=== PATIENT | male | born 1960 | race Caucasian/White ===

== ENCOUNTER 2024-09-06 07:19 | Emergency (ER) | payer BC, SELFPAY ==
[2024-09-06] VITALS (8 sets, daily range): BP systolic 124–193; BP diastolic 82–122; PULSE 73–92; RESP 16–18; TEMP 36.7–37.1; O2SAT 95–99; BMI 36.8
--- NOTE | 2024-09-06 07:33 | XR_ITS ---
Examination: CT abdomen and pelvis without contrast. Coronal 3-D reconstructions. Sagittal 2-D reconstructions. Date and time of exam:September 06 2024 0811 hours CTDI: vol (mGy): 13.6 DLP: (mGycm): 858 Technique: Axial images of the abdomen have been obtained, 3 mm slice thickness Intravenous contrast material has not been administered. Low dose protocols were performed. One or more of the following dose reduction techniques were used; automated exposure control, adjustment of the mA and/or KV according to patient size, use of iterative reconstruction technique. Findings: Stable pulmonary nodule right lower lobe Diffuse fatty infiltration throughout the liver No gallstones No pancreatic or adrenal mass Perinephric stranding Bilateral benign renal cysts No hydronephrosis or ureteral calculi Normal appendix 20 mm fat-containing umbilical hernia Colonic diverticulosis, no diverticulitis Normal seminal vesicles No significant prostatomegaly Minimal thickening of the urinary bladder wall Advanced degenerative disc disease L3-L4, L4-L5 IMPRESSION: Fatty liver Perinephric stranding consistent with urinary tract infection Mild cystitis pattern Normal appendix
--- NOTE | 2024-09-06 07:33 | PD.EDRME ---
Rapid Medical Screening Exam E Arrival date/time: 09/06/24 07:19 64-year-old male with a history of hypertension, hyperlipidemia presents to the emergency room with a chief complaint of fever, vomiting, and lower abdominal pain x 2 days. I have greeted and performed a focused initial assessment of this patient. A comprehensive ED assessment and evaluation of the patient, analysis of all test results, and completion of the medical decision making process will be conducted by additional ED providers. Chief Complaint: Nausea/Vomiting/Diarrhea Vital signs reviewed by provider: Yes
[2024-09-06] MEDS: ONDANSETRON ODT 4 MG TABRAP PO (07:44)
--- NOTE | 2024-09-06 08:54 | PC.NURSE ---
ASSUME CARE FOR THIS PT, WHO PRESENT TO THE ER WITH CHIEF C/O OF FEVER SINCE YESTERDAY ALONG WITH N/V. PT ALSO C/O OF FEELING WEAK. PT GIVE UPDATE ON PLAN OF CARE. FAMILY AT BEDSIDE.
[2024-09-06 09:07] LABS: Basophils % (Auto) 0 % (0-2.5); Eosinophils % (Auto) 0 % (0-10); Hematocrit 40.9 % (41.0-53.0); Hemoglobin 14.2 g/dL (13.5-16.0); Immature Granulocytes % (Auto) 1 % (0-0); Immature Granulocytes Auto 0.08 Thou/mm3 (0.00-0.00); Lymphocytes # (Auto) 1.2 Thou/mm3 (1.0-4.8); Lymphocytes % (Auto) 13 % (10-50); Mean Corpuscular HGB Conc 34.7 g/dl (31.0-37.0); Mean Corpuscular Hemoglobin 31.5 pg (25.0-35.0); Mean Corpuscular Volume 91 fL (80-100); Monocytes # (Auto) 1.3 Thou/mm3 (0.0-0.8); Monocytes % (Auto) 14 % (0-12); Neutrophils # (Auto) 6.9 Thou/mm3 (1.8-7.7); Neutrophils % (Auto) 72 % (37-80); Nucleated Red Blood Cell % 0 /100 WBC (0); Platelet Count 255 Thou/mm3 (140-440); RDW Standard Deviation 50.2 fL (35.1-43.9); Red Blood Count 4.51 Miln/mm3 (4.50-5.90); White Blood Count 9.6 Thou/mm3 (3.8-10.6)
[2024-09-06 09:23] LABS: Alanine Aminotransferase 31 U/L (10-49); Albumin, Serum 4.6 gm/dL (3.4-4.8); Albumin/Globulin Ratio 1.7 (1.2-2.2); Alkaline Phosphatase 56 U/L (46-116); Anion Gap 12 (7-16); Aspartate Amino Transferase 27 U/L (0-34); BUN/Creatinine Ratio 19 Ratio (12-20); Bilirubin,Total 0.5 mg/dL (0.3-1.2); Blood Urea Nitrogen 19 mg/dL (9-23); Calcium 9.3 mg/dL (8.3-10.6); Calcium (Corrected) 9.3 mg/dL (8.5-10.1); Carbon Dioxide 24.5 mMol/L (20.0-31.0); Chloride 98 mMol/L (98-107); Estimated Creatinine Clearance 105.5 mL/min (>60); Globulin 2.7 gm/dL (2.3-3.5); Glucose 133 mg/dL (74-106); Lipase 33 U/L (12-53); Osmolality,Calculated 272 (275-295); Potassium 3.8 mMol/L (3.4-5.1); Sodium 134 mMol/L (136-145); Total Protein 7.3 gm/dL (5.7-8.2); eGFR > 60 See Note
--- NOTE | 2024-09-06 09:29 | PD.EDNV ---
Nausea/Vomit./Diarrhea-RME/HPI General Chief complaint: Nausea/Vomiting/Diarrhea Stated complaint: Fever, vomiting, BARRERA Time Seen by Provider: 09/06/24 15:31 Arrival date/time: 09/06/24 07:19 RME / HPI RME / HPI Narrative: DR. YOUNG MAIN ED EVALUATION: 64 year old male presents to the Emergency Department with complaints of fevers, chills, nausea, vomiting, lower abdominal pain, and a mild headache. Onset of symptoms 2 days. Symptoms are moderate. PMHx: Hypertension, hyperlipidemia Social Hx: Tobacco smoker. No alcohol or substance use. Related Data Home Medications ?Medication ?Instructions ?Recorded ?Confirmed atorvastatin 10 mg tablet 10 mg PO QDAY 12/20/18 06/16/23 potassium chloride 10 mEq 10 meq PO DAILY 03/27/23 02/02/24 tablet,extended release (Klor-Con) azilsartan medoxomil 40 1 tab PO DAILY 06/16/23 02/02/24 mg-chlorthalidone 12.5 mg tablet (Edarbyclor) duloxetine 60 mg capsule,delayed 60 mg PO BID 06/16/23 02/02/24 release carvedilol 25 mg tablet 25 mg PO BID 02/02/24 02/02/24 furosemide 40 mg tablet 40 mg PO DAILY 02/02/24 02/02/24 gabapentin 300 mg capsule 300 mg PO TID 02/02/24 02/02/24 Previous Rx's ?Medication ?Instructions ?Recorded benzonatate 100 mg capsule 100 mg PO TID PRN cough #10 caps 09/06/24 Allergies Allergy/AdvReac Type Severity Reaction Status Date / Time No Known Allergies Allergy Verified 06/17/23 10:47 Review of Systems Review of Systems Systems Reviewed: All systems reviewed, normal except as documented Narrative Review of Systems: GEN: + fever, + chills, no weight loss EYES: No discharge, no visual changes, no pain HEENT: No ear pain, no congestion, no sore throat PULM: No shortness of breath, no cough, no congestion CV: No chest pain, no dyspnea on exertion, no palpitations GI: + nausea, + vomiting, no diarrhea, + lower abdominal pain, no constipation : No frequency, no urgency and no dysuria MUSC/SKEL: No joint pain, no back pain SKIN: No rash PSYCH: No hallucinations, no depression HEME/LYMPH: No easy bleeding or bruising tendencies NEURO: No weakness, + mild headache Past Medical History Past Medical History NEUROLOGIC: Negative Neurological Disorders or Seizures CARDIAC: Positive Cardiac Disorders, Hypercholesterolemia, Edema (slight edema) and Hypertension; Negative Congestive Heart Failure RESPIRATORY: Negative Chronic Obstructive Pulmonary Disease (COPD) or Asthma GASTROINTESTINAL: Positive Gastrointestinal Disorders, Hiatal Hernia and Obesity; Negative Hepatitis GENITOURINARY: Negative Genitourinary Disorders or Renal Disease MUSCULOSKELETAL: Positive Musculoskeletal Disorders and Arthritis ENDOCRINE: Negative Endocrine Disorders, Diabetes Mellitus Type 1 or Diabetes Mellitus Type 2 HEMATOLOGIC: Negative Blood Disorders or Sickle Cell Disease OTHER HISTORY: Positive Hospitalization (accident), Blood Transfusions, MRSA and Chicken Pox; Negative Autoimmune Disease, Shingles, Falls, Blood Transfusion Reaction, Anesthesia Reactions, Chemotherapy, Radiation Therapy or Cancer Family History FAMILY HISTORY: Positive Family Cardiac Disorders (MOTHER (CVA)), Family Cancer (FATHER (COLON)) and Family Surgery (FATHER); Negative Family Psychiatric Problems, Family Respiratory Disorders, Family Gastrointestinal Problems or Family Anesthesia Reaction Surgical History SURGICAL: Positive Abdominal Surgery, Arthroscopy (right knee) and Vasectomy Social History SMOKING STATUS: Current every day smoker SUBSTANCE USE: does not use ALCOHOL: Never ED Exam Narrative Physical exam: GENERAL APPEARANCE: alert and oriented x 4, well-developed, well-nourished, no acute distress VITALS: All vitals were reviewed and the pulse ox is 95% on room air, which is normal according to my interpretation. HEENT: Normocephalic, atraumatic; pupils equal, round, reactive to light; EOMI; mucous membranes pink, moist; oropharynx clear NECK: Supple LUNGS: CTABL; no wheezes, no rales, no rhonchi HEART: Regular rate, regular rhythm; normal S1, S2; no murmurs ABDOMEN: non distended; normal BS; soft, no tenderness, no guarding, no rebound; no masses, no organomegaly, no hernia BACK: no CVA tenderness EXTREMITIES: atraumatic; no edema NEUROLOGIC: awake; alert and oriented x4; cranial nerves II-XII grossly intact; no focal sensory or motor deficits PSYCHIATRIC: appropriate mood and affect SKIN: warm, dry, normal color; no rashes Course Course Course Narrative: 1200: Patient was signed out to Dr. Sierra. Past medical, surgical, social and family history reviewed. Vitals and home medications reviewed. Results and treatment plan discussed. They will assume the care of the patient at this time and will follow the patient. Quality Measures none Orders Category Date Time Status CT abdomen pelvis wo con Stat Exams 09/06/24 07:33 Completed CBC Stat Lab 09/06/24 08:22 Completed CMP [Comprehensive Metabolic Panel] Stat Lab 09/06/24 08:22 Completed Lipase Stat Lab 09/06/24 08:22 Completed UA [Urinalysis] Stat Lab 09/06/24 10:15 Completed Urine Culture Stat Lab 09/06/24 10:15 Completed Albuterol/Ipratr Rt Michelle [Duoneb Rt Michelle] Med 09/06/24 14:02 Discontinued 3 ml INH X1 ONE HYDROcodone*/APAP 5/325 [[place] 5/325] Med 09/06/24 14:40 Discontinued 1 tab PO X1 ONE Ketorolac Inj [Toradol Inj] Med 09/06/24 15:38 Discontinued 30 mg IVP X1 ONE Morphine Inj Med 09/06/24 14:02 Discontinued 4 mg IVP X1 ONE Ondansetron Inj [Zofran Inj] Med 09/06/24 14:02 Discontinued 4 mg IV X1 ONE Ondansetron Odt [Zofran Odt] Med 09/06/24 07:33 Discontinued 4 mg PO X1 ONE Oseltamivir [Tamiflu] Med 09/06/24 14:06 Discontinued 75 mg PO X1 ONE Sodium Chloride 0.9% 1000 ml [Ns] 1,000 ml Med 09/06/24 12:32 Discontinued IV 999 mls/hr Sodium Chloride 0.9% 1000 ml [Ns] 1,000 ml Med 09/06/24 12:39 Discontinued IV 999 mls/hr carVEDILOL [Coreg] Med 09/06/24 14:02 Discontinued 25 mg PO X1 ONE Vital Signs Vital signs: Vital Signs Temperature 98.6 F 09/06/24 07:38 Pulse Rate 78 09/06/24 07:38 Respiratory Rate 18 09/06/24 07:38 Blood Pressure 124/82 09/06/24 07:38 Pulse Oximetry (%) 95 09/06/24 07:38 Oxygen Delivery Method Room Air 09/06/24 07:38 Nausea/Vomiting/Diarrhea MDM Narrative MDM Narrative:: IRachel am scribing for and in the presence of Dr. Yonug. Patient data External records reviewed:: [facility] previous records (Reviewed last admission discharge dated 02/02/24, patient admitted for the following: Gastroenteritis) Clinical information provided by:: patient Social determinants that could affect healthcare access:: other (specify) (tobacco smoker ) Patient has the following chronic illnesses:: Hypertension, hyperlipidemia How is presenting disease/condition affected by chronic disease/condition?: exacerbated by Evaluation data The following diagnostics were reviewed and interpreted by me:: lab results and radiology exam(s) Lab and/or radiology exams considered but not ordered:: none Interpretation Summary: Procedure(s): CT abdomen pelvis wo con Accession Number(s): [id number] cc: Sunny Victor; Kwasi Kirby MD; Ruiz Gardner MD~ Examination: CT abdomen and pelvis without contrast. Coronal 3-D reconstructions. Sagittal 2-D reconstructions. Date and time of exam:September 06 2024 0811 hours CTDI: vol (mGy): 13.6 DLP: (mGycm): 858 Technique: Axial images of the abdomen have been obtained, 3 mm slice thickness Intravenous contrast material has not been administered. Low dose protocols were performed. One or more of the following dose reduction techniques were used; automated exposure control, adjustment of the mA and/or KV according to patient size, use of iterative reconstruction technique. Findings: Stable pulmonary nodule right lower lobe Diffuse fatty infiltration throughout the liver No gallstones No pancreatic or adrenal mass Perinephric stranding Bilateral benign renal cysts No hydronephrosis or ureteral calculi Normal appendix 20 mm fat-containing umbilical hernia Colonic diverticulosis, no diverticulitis Normal seminal vesicles No significant prostatomegaly Minimal thickening of the urinary bladder wall Advanced degenerative disc disease L3-L4, L4-L5 IMPRESSION: Fatty liver Perinephric stranding consistent with urinary tract infection Mild cystitis pattern Normal appendix Dictated By: Kwasi Kirby MD Medications / Prescriptions Medications / Prescriptions considered but not ordered:: none Medication administrations:: Medication Administration History Discontinued Medications Hydrocodone Bitart/Acetaminophen (Hydrocodone/Apap 5/325 Tablet) 1 tab PO X1 ONE Stop: 09/06/24 14:41 Last Admin: 09/06/24 15:12 Dose: Not Given Documented By: DB Non-Admin Reason: Patient Refused Comments: Albuterol/Ipratropium (Albuterol/Ipratropium (Duoneb) Rt Michelle 3 Ml Nebu) 3 ml INH X1 ONE Stop: 09/06/24 14:03 Last Admin: 09/06/24 14:39 Dose: 3 ml Documented By: KECIA Carvedilol (Carvedilol 12.5 Mg Tablet) 25 mg PO X1 ONE Stop: 09/06/24 14:03 Last Admin: 09/06/24 14:44 Dose: 25 mg Documented By: PAT Sodium Chloride (Ns) 1,000 mls @ 999 mls/hr IV .Q1H1M ONE Stop: 09/06/24 13:32 Last Infusion: 09/06/24 14:28 Dose: Infused Documented By: Admin: 09/06/24 13:25 Dose: 999 mls/hr Documented By: PAT Sodium Chloride (Ns) 1,000 mls @ 999 mls/hr IV .Q1H1M ONE Stop: 09/06/24 13:39 Last Infusion: 09/06/24 14:28 Dose: Infused Documented By: Admin: 09/06/24 13:27 Dose: 999 mls/hr Documented By: PAT Ketorolac Tromethamine (Ketorolac Inj 30 Mg/Ml Vial) 30 mg IVP X1 ONE Stop: 09/06/24 15:39 Last Admin: 09/06/24 16:27 Dose: 30 mg Documented By: PAT Morphine Sulfate (Morphine Sulf Inj 10 Mg/Ml Vial) 4 mg IVP X1 ONE Stop: 09/06/24 14:03 Last Admin: 09/06/24 14:30 Dose: 4 mg Documented By: PAT Ondansetron HCl (Ondansetron Odt 4 Mg Tabrap) 4 mg PO X1 ONE; Protocol Stop: 09/06/24 07:34 Last Admin: 09/06/24 07:44 Dose: 4 mg Documented By: CHERIE Ondansetron HCl (Ondansetron Inj 2 Mg/Ml Inj 2 Ml) 4 mg IV X1 ONE; Protocol Stop: 09/06/24 14:03 Last Admin: 09/06/24 14:29 Dose: 4 mg Documented By: PAT Oseltamivir Phosphate (Oseltamivir 75 Mg Capsule) 75 mg PO X1 ONE Stop: 09/06/24 14:07 Last Admin: 09/06/24 14:32 Dose: 75 mg Documented By: DB see above Consultations Consultation(s) initiated? (list below): No Consultation #1 (Physician, Specialty, Details): Patient signout to Dr. Sierra. Diagnosis Nausea Differential Diagnosis: food poisoning, gastroenteritis and dehydration Most likely diagnosis given after review of the tests above:: No official diagnoses at this time, still pending diagnostic tests. Patient signout to Dr. Sierra. Admission Indicated Admission indicated?: not indicated Explain why admission is indicated or not indicated:: No final disposition plan at this time, still pending diagnostic tests. Patient signout to Dr. Sierra. Admission Request Was there a request for admission?: No Disposition Plan Disposition Plan: other (specify) (Patient signout to Dr. Sierra.) Discharge Plan Plan Patient Disposition: HOME (Self Care) Patient condition on transfer: Stable Prescriptions/Referrals Prescriptions/Med Rec: New benzonatate 100 mg capsule 100 mg PO TID PRN (Reason: cough) Qty: 10 0RF No Action atorvastatin 10 mg Tablet 10 mg PO QDAY potassium chloride [Klor-Con 10] 10 mEq Tablet Extended Release 10 meq PO DAILY furosemide 40 mg tablet 40 mg PO DAILY carvedilol 25 mg tablet 25 mg PO BID gabapentin 300 mg capsule 300 mg PO TID Patient Comments: TAKE 1 CAPSULE BY MOUTH THREE TIMES A DAY duloxetine 60 mg Capsule,Delayed Release(Dr/Ec) 60 mg PO BID Edarbyclor 40-12.5 mg Tablet 1 tab PO DAILY Referrals: Ruiz Gardner MD [Primary Care Provider] - 09/10/24 Problem List Clinical Impression: Influenza Patient/Caregiver Discharge Instructions Education Materials: ED Influenza (Adult) Print Language: Khmer Stand Alone Forms: [employer] Award Info., Patient Portal Info Letter
[2024-09-06 10:19] LABS: Collection Type, Urine Clean Catch; Squamous Epithelial Cell,Urine 0 /hpf (0-5)
[2024-09-06 10:27] LABS: Bilirubin,Urine Negative (Negative); Blood,Urine Negative (Negative); Clarity,Urine Clear (Clear/Hazy); Color,Urine Yellow (Lt Yel-Yel); Glucose, Urine Negative (Negative); Hyaline Casts,Urine < 1 /hpf (0-1); Ketones,Urine Trace (Negative); Leukocyte Esterase,Urine Negative (Negative); Nitrite,Urine Negative (Negative); PH,Urine 6.5 (5.0-7.0); Protein,Urine 1+ (Neg - Trace); RBC,Urine 9 /hpf (0-3); Specific Gravity,Urine 1.026 (1.001-1.035); Urobilinogen,Urine Negative mg/dL (0.0-1.0); WBC,Urine < 1 /hpf (0-5)
[2024-09-06] MEDS: SODIUM CHLORIDE 0.9% 1000 ML 1,000 ML 999 ML IV ×2 (13:25→13:27)
--- NOTE | 2024-09-06 14:08 | PD.EDADDENDU ---
Emergency Room Addendum Addendum Narrative: 1200: Care assumed from Dr. Young, the previous shift emergency physician. Past medical, surgical, social and family history reviewed. Vitals and home medications reviewed. I will assume the care of the patient at this time. Please refer to the emergency department record for history and examination from initial visit.? Physical exam by me shows patient under no acute distress at this time. 1530: Patient remains clinically stable throughout the emergency department visit. Re-assessment at the time of disposition demonstrates that the patient is in no acute distress. We reviewed all the results, analysis, and treatment plans. Patient is amenable to discharge. Strict return precautions were outlined. Patient was discharged in stable condition. Diagnoses: Influenza
[2024-09-06] MEDS: ONDANSETRON INJ 2 MG/ML INJ 2 ML 4 MG IV (14:29)
[2024-09-06] MEDS: MORPHINE SULF INJ 10 MG/ML VIAL 4 MG IVP (14:30)
[2024-09-06] MEDS: OSELTAMIVIR 75 MG CAPSULE PO (14:32)
[2024-09-06] MEDS: ALBUTEROL/IPRATROPIUM (Duoneb) RT SOL 3 ML NEBU INH (14:39)
[2024-09-06] MEDS: carVEDILOL 12.5 MG TABLET 25 MG PO (14:44)
[2024-09-06] MEDS: KETOROLAC INJ 30 MG/ML VIAL IVP (16:27)
== END 2024-09-06 16:35 | disposition home or self-care (01) ==
PROVIDERS: Nurse Practitioner Family; Emergency Provider Emergency Medicine; PCP Family Medicine
DX: J11.1 Influenza due to unidentified influenza virus with other respiratory manifestations (principal); K76.0 Fatty (change of) liver, not elsewhere classified; I10 Essential (primary) hypertension; E78.00 Pure hypercholesterolemia, unspecified; F17.290 Nicotine dependence, other tobacco product, uncomplicated
CPT/HCPCS: 36415; 74176; 80053; 81001; 83690; 85025; 87086; 87400; 87811; 94640; 96361; 96374; 96375; 99284; A9270; J1885; J2270; J2405; J7030; Q0162